=== PATIENT | female | born 1990 | race Hispanic/Latino ===

== ENCOUNTER 2017-05-31 22:42 | Emergency (ER) | payer MEDICAID, OTHER, SELFPAY ==
[2017-05-31 23:41] LABS: #Eosinphils 0.3 thou/uL (0.0-0.7); #Lymphocytes 2.2 thou/uL (1.20-3.40); #Monocytes 0.6 thou/uL (0.11-0.59); #Neutrophils 4.5 thou/uL (1.40-6.50); %Basophils 0.2 % (0.0-1.0); %Eosinophils 4.2 % (0.0-10.0); %Lymphocytes 28.8 % (21.0-51.0); %Monocytes 8.4 % (0.0-10.0); %Neutrophils 58.4 % (42.0-75.0); Hemoglobin 14.8 g/dL (12.0-16.0); Mean Corpuscular Volume 88.5 fl (81.0-99.0); Mean Platelet Volume 7.6 fL (7.4-10.4); Platelet Count 258 thou/uL (130-400); RBC Distribution Width 11.9 % (11.5-14.5); Red Blood Cell (RBC) Count 4.77 mill/uL (4.20-5.40); White Blood Cell (WBC) Count 7.7 thou/uL (4.8-10.8)
[2017-06-01 00:33] LABS: Bilirubin Negative (Negative); Blood, Urine Small (Negative); Clarity CLEAR (Clear); Glucose, Urine (Dipstick) Negative (Negative); Leukocyte Trace (Negative); Nitrite Negative (Negative); Protein, Urine (Dipstick) Negative (Neg-Trace); Specific Gravity, Urine 1.016 (1.002-1.036); Urobilinogen 0.2 mg/dL (0.2-1.0); pH, Urine 6.5 (5.0-9.0)
[2017-06-01 00:35] LABS: Bacteria/HPF Rare-Few HPF (None Seen); Hyaline Casts/LPF 0-3 HYALINE CAST LPF (0-3 Hyaline); WBC/HPF 0-3 HPF (0-3)
[2017-06-01 00:51] LABS: RBC/HPF 0-3 HPF (0-3)
--- NOTE | 2017-06-01 13:35 | ULT ---
PRELIMINARY REPORT/[facility]/EMERGENCY AFTER HOURS PROCEDURE: EXAM: US , Transvaginal EXAM DATE/TIME: 06/01/2017 12:43 AM CLINICAL HISTORY: 26 years old, female; Pain; Other: Vag spotting, cramping; Gestational age or lmp: 5wks; TECHNIQUE: Real-time transvaginal obstetrical ultrasound of the maternal pelvis and a first trimester with image documentation. Transvaginal imaging was used for better evaluation of the fetus and adnexa . COMPARISON: No relevant prior studies available. FINDINGS: Gestation: Small cystic structure within endometrium - intrauterine gestational sac. No definite yolk sac present. No pole identified. Mean gestational sac diameter 0.35 cm. Placenta/amniotic fluid: Cannot be adequately evaluated due to the early gestational age. Uterus/cervix: Normal size 8.8 x 4.8 x 5.8 Cm. No myometrial mass. Ovaries: Right ovary 3.6 x 1.6 x 2.5 Cm appears normal. Vascular flow noted to right ovary. Left ovar y 3.3 x 2 x 3.8 Cm appears normal. Vascular flow noted to left ovary. Free fluid: Mild pelvic free fluid. IMPRESSION: 1. Single intrauterine gestational sac with estimated gestational age is 5 weeks 1 days by current ul trasound. No pole or yolk sac. --Please correlate with patient exam and BHCG as clinically mine cated. 2. Normal appearing bilateral ovaries. 3. Mild pelvic free fluid. Thank you for allowing us to participate in the care of your patient. Dictated and Authenticated by: Liza Gu MD 06/01/2017 2:42 AM Central Time ([place] & [place]) FINAL REPORT PELVIC ULTRASOUND: TECHNIQUE: Gordillo-scale, color flow, and spectral analysis was performed of the pelvis with transvaginal imaging. FINDINGS/IMPRESSION: I agree with the preliminary interpretation provided above. An intrauterine gestation is present, which, by ultrasound, corresponds to an approximately 5 week 1 day gestation. The alternative possibility would be a pseudo gestational sac, as an internal yolk sa c and pole are not confirmed due to small size. Therefore, continued imaging followup as well as serial beta hCG analysis are necessary for continued appropriate monitoring. Nonspecific amount of free pelvic fluid. POS: [facility]
[2017-06-04 01:13] LABS: Chlamydia by PCR Not Detected (NotDetected); GC by PCR Not Detected (NotDetected)
== END 2017-06-01 04:08 | disposition home or self-care (01) ==
LOC: ERS 22:42
DX: O99.89 Other specified diseases and conditions complicating pregnancy, childbirth and the puerperium (principal); R10.2 Pelvic and perineal pain
CPT/HCPCS: 36415; 76856; 81003; 81015; 84702; 85025; 86900; 86901; 87480; 87491; 87510; 87591; 87660

== ENCOUNTER 2017-06-02 19:37 | Emergency (ER) | payer MEDICAID, OTHER ==
[2017-06-02 20:58] LABS: #Eosinphils 0.3 thou/uL (0.0-0.7); #Lymphocytes 1.7 thou/uL (1.20-3.40); #Monocytes 0.8 thou/uL (0.11-0.59); #Neutrophils 7.4 thou/uL (1.40-6.50); %Basophils 0.4 % (0.0-1.0); %Lymphocytes 16.5 % (21.0-51.0); %Monocytes 7.5 % (0.0-10.0); %Neutrophils 72.6 % (42.0-75.0); Hemoglobin 14.5 g/dL (12.0-16.0); Mean Corpuscular HGB CONC 33.4 g/dL (32.0-36.0); Mean Corpuscular Hemoglobin 29.9 pg (27.0-31.0); Mean Corpuscular Volume 89.4 fl (81.0-99.0); Mean Platelet Volume 7.6 fL (7.4-10.4); Platelet Count 285 thou/uL (130-400); RBC Distribution Width 11.8 % (11.5-14.5); Red Blood Cell (RBC) Count 4.85 mill/uL (4.20-5.40); White Blood Cell (WBC) Count 10.2 thou/uL (4.8-10.8)
--- NOTE | 2017-06-02 22:53 | ULT ---
PELVIC ULTRASOUND WITH DOPPLER (Transabdominal, transvaginal, irwin scale, color flow and spectral doppler) 06/02/17 HISTORY: Vaginal bleeding and pelvic pain. FINDINGS: The uterus measures 8.9 x 4.7 x 5.5 cm. The right ovary measures 2.5 x 1.3 x 2.2 cm. The left ovary m easures 2.7 x 2.1 x 3.5 cm. Flow is demonstrated to both ovaries. No intrauterine gestational sac is seen on the current exam. There is a small amount of fluid in the endocervical canal. The intrauterine gestation sac seen on the previous day's exam is not visualized on the current study. IMPRESSION: Findings are indicative of an in progress. POS: [facility]
== END 2017-06-02 22:43 | disposition home or self-care (01) ==
LOC: ERS 19:37
DX: O03.4 Incomplete spontaneous abortion without complication (principal)
CPT/HCPCS: 36415; 76856; 84702; 85025; 86900; 86901

== ENCOUNTER 2018-07-14 13:21 | Outpatient (CLI) | payer OTHER ==
--- NOTE | 2018-07-14 14:50 | RAD ---
TWO VIEW CHEST: INDICATION: Pressure. FINDINGS: There is no consolidation, effusion, or pneumothorax. Cardiac silhouette is normal in size. Osseous structures are intact. IMPRESSION: No focal consolidation. POS: [facility]
== END 2018-07-14 13:22 | disposition home or self-care (01) ==
LOC: BICRAD 13:21
PROVIDERS: ATTEND Family Medicine
DX: R07.89 Other chest pain (principal)
CPT/HCPCS: 71046